=== PATIENT | female | born 1955 | race Caucasian/White ===

== ENCOUNTER → 2021-12-16 | Outpatient (CLI) | payer OTHER | LOC: LAB 11:46 | DX: J20.9 Acute bronchitis, unspecified (principal); Z20.822 Contact with and (suspected) exposure to COVID-19 | CPT/HCPCS: U0002 ==

== ENCOUNTER → 2022-01-19 | Day surgery (SDC) | payer MEDICARE, OTHER ==
[~2022-01-19] VITALS: Ht 154.9 cm; Wt 64.4 kg
[~2022-01-19] MED LIST: LEVOTHYROXINE88 MC1 PO; NORVASC5 MG PO; PROAIR DIGIHAL90 MCG INH; SINGULAIR10 MG PO; ZOCOR20 MG PO
== END | disposition home or self-care (01) ==
LOC: OR 06:28
DX: Z12.11 Encounter for screening for malignant neoplasm of colon (principal); D12.2 Benign neoplasm of ascending colon; K57.30 Diverticulosis of large intestine without perforation or abscess without bleeding; K64.4 Residual hemorrhoidal skin tags; I10 Essential (primary) hypertension; E78.5 Hyperlipidemia, unspecified; E03.9 Hypothyroidism, unspecified; Z88.2 Allergy status to sulfonamides; Z79.899 Other long term (current) drug therapy; Z20.822 Contact with and (suspected) exposure to COVID-19
CPT/HCPCS: J2704